=== PATIENT | female | born 1955 | race Caucasian/White ===

== ENCOUNTER 2021-03-30 08:35 | Inpatient (IN) | payer BC, MEDICARE ==
[~2021-03-30] VITALS: Ht 167.6 cm; Wt 63.9 kg
[2021-03-30 10:28] LABS: BASOPHILS % (AUTO) 0.4 % (0-1); EOSINOPHILS % (AUTO) 0.3 % (0-6); HEMATOCRIT 31.3 % (35.0-45.0); HEMOGLOBIN 10.5 g/dl (12.0-16.0); LYMPHOCYTES # (AUTO) 1.4 X10'3 (1.1-4.8); LYMPHOCYTES % (AUTO) 21.4 % (21-51); MEAN CORPUSCULAR HEMOGLOBIN 29.3 PG (27.0-31.0); MEAN CORPUSCULAR HGB CONC 33.6 g/dL (33.0-36.5); MEAN CORPUSCULAR VOLUME 87.1 FL (78-98); MEAN PLATELET VOLUME 6.5 FL (7.4-10.4); MONOCYTES # (AUTO) 0.4 X10'3 (0-0.9); NEUTROPHILS # (AUTO) 4.6 X10'3 (1.8-7.7); NEUTROPHILS % (AUTO) 71.9 % (42-75); PLATELET COUNT 418 X10'3 (140-440); RED BLOOD COUNT 3.59 X10'6 (4.20-5.60); RED CELL DISTRIBUTION WIDTH 15.5 % (11.5-14.5); WHITE BLOOD COUNT 6.4 X10'3 (4.5-11.0)
[2021-03-30 10:39] LABS: ALANINE AMINOTRANSFERASE 20 U/L (12-78); ALBUMIN 2.9 G/DL (3.4-5.0); ALBUMIN/GLOBULIN RATIO 0.8 (1.1-1.5); ALKALINE PHOSPHATASE 115 IU/L (46-116); ANION GAP 9 (8-16); ASPARTATE AMINO TRANSFERASE 18 U/L (10-37); BILIRUBIN,TOTAL 0.2 MG/DL (0.1-1.0); BLOOD UREA NITROGEN 30 MG/DL (7-18); BUN/CREATININE RATIO 38.5 (6.6-38.0); CALCIUM 8.4 MG/DL (8.5-10.1); CHLORIDE 105 MMOL/L (99-107); CREATININE 0.78 MG/DL (0.40-0.90); GLUCOSE 106 MG/DL (70-104); POTASSIUM 4.3 MMOL/L (3.5-5.1); SODIUM 141 MMOL/L (135-145); TOTAL PROTEIN 6.4 G/DL (6.4-8.2); eGFR 75 ML/MIN
[2021-03-30] MEDS ORDERED: pantoprazole IV 80 MG in normal saline 100ml IV soln 100 ML IV ONE (10:55)
[2021-03-30] MEDS ORDERED: LIDOcaine Viscous 15ml cup ONE (11:29)
[2021-03-30] MEDS ORDERED: MIDAZolam 1 MG/ML 5ML VIAL ONE (11:29)
[2021-03-30] MEDS ORDERED: fentaNYL/PF 50MCG/1 ML 2ML syringe ONE ×2 (11:29)
[2021-03-30 11:31] VITALS: BP 103/65
[2021-03-30 11:52] VITALS: BP 134/89
[2021-03-30 12:04] VITALS: BP 112/72
[2021-03-30 12:14] VITALS: BP 128/83
[2021-03-30 12:24] VITALS: BP 132/75
--- NOTE | 2021-03-30 12:50 | NUR ---
back from lab
[2021-03-30] MEDS ORDERED: LEVO150T8 PO (13:09)
[2021-03-30] MEDS ORDERED: ESCI20TA39 PO (13:09)
[2021-03-30] MEDS ORDERED: AMIT100T61 PO (13:09)
[2021-03-30] MEDS ORDERED: ASPI-845 PO (13:09)
[2021-03-30] MEDS ORDERED: HYDR-3972 PO (13:09)
[2021-03-30] MEDS ORDERED: CELE-85 PO (13:09)
[2021-03-30] MEDS ORDERED: diphenhydrAMINE 25mg capsule PO PRN (14:15)
[2021-03-30] MEDS ORDERED: morphine 2 MG/ML inj. syringe IV PRN ×2 (14:15)
[2021-03-30] MEDS ORDERED: magnesium hydroxide 30ml (MOM) UD suspension PO PRN (14:15)
[2021-03-30] MEDS ORDERED: potassium CL 10mEq/100ml bag 100 ML IV PRN (14:15)
[2021-03-30] MEDS ORDERED: acetaminophen 650mg rectal suppository RC PRN (14:15)
[2021-03-30] MEDS ORDERED: HYDROcodone/acetaminophen 5mg/325mg tablet PO PRN (14:15)
[2021-03-30] MEDS ORDERED: bisacodyl 10mg suppository rectal RC PRN (14:15)
[2021-03-30] MEDS ORDERED: HYDROcodone/acetaminophen 10/325mg tab PO PRN (14:15)
[2021-03-30] MEDS ORDERED: acetaminophen 325mg tablet PO PRN ×2 (14:15)
[2021-03-30] MEDS ORDERED: ondansetron/PF 4mg/2ml inj IV PRN (14:15)
[2021-03-30] MEDS ORDERED: magnesium Cl slow-release 64mg tablet PO PRN (14:15)
[2021-03-30] MEDS ORDERED: potassium Cl 20 mEq SR tablet PO PRN (14:15)
[2021-03-30] MEDS ORDERED: mag hydrox/Alum hydrox/simeth 30ml oral suspension PO PRN (14:15)
[2021-03-30] MEDS ORDERED: magnesium 2GM in 50ml NS 50 ML IV PRN (14:15)
[2021-03-30] MEDS ORDERED: magnesium 4gm in 100ml NS 100 ML IV PRN (14:15)
[2021-03-30 14:32] LABS: HEMATOCRIT 30.6 % (35.0-45.0); HEMOGLOBIN 10.3 g/dl (12.0-16.0); MEAN CORPUSCULAR HEMOGLOBIN 29.3 PG (27.0-31.0); MEAN CORPUSCULAR HGB CONC 33.6 g/dL (33.0-36.5); MEAN CORPUSCULAR VOLUME 87.5 FL (78-98); MEAN PLATELET VOLUME 6.4 FL (7.4-10.4); PLATELET COUNT 377 X10'3 (140-440); RED CELL DISTRIBUTION WIDTH 15.8 % (11.5-14.5); WHITE BLOOD COUNT 6.1 X10'3 (4.5-11.0)
[2021-03-30 14:48] LABS: MAGNESIUM 2.1 MG/DL (1.5-2.4); POTASSIUM 3.9 MMOL/L (3.5-5.1)
[2021-03-30 15:08] LABS: HEMOGLOBIN A1C 5.1 % (4.5-6.2)
[2021-03-30] MEDS: pantoprazole 40MG/NS 100ML BAG 100 ML IV SCH ×3 (15:43→23:13)
[2021-03-30] MEDS: normal saline 1000ml 1,000 ML IV SCH ×2 (15:49→22:20)
[2021-03-30 18:29] VITALS: BP 101/77
[2021-03-30] MEDS ORDERED: K and/or MAG REPLACEMENT MC SCH (20:00)
[2021-03-30 20:29] LABS: HEMATOCRIT 27.9 % (35.0-45.0); HEMOGLOBIN 9.3 g/dl (12.0-16.0); MEAN CORPUSCULAR HEMOGLOBIN 29.2 PG (27.0-31.0); MEAN CORPUSCULAR HGB CONC 33.2 g/dL (33.0-36.5); MEAN PLATELET VOLUME 6.3 FL (7.4-10.4); PLATELET COUNT 348 X10'3 (140-440); RED BLOOD COUNT 3.16 X10'6 (4.20-5.60); RED CELL DISTRIBUTION WIDTH 15.9 % (11.5-14.5); WHITE BLOOD COUNT 5.1 X10'3 (4.5-11.0)
[2021-03-30] MEDS ORDERED: amitriptyline 50mg tablet PO SCH (21:00)
[2021-03-30] MEDS ORDERED: ESCITALOPRAM OXALATE 5 MG TABLET PO SCH (21:00)
[2021-03-30] MEDS: docusate sod 100mg capsule PO SCH (22:19)
[2021-03-30] MEDS: HYDROcodone/acetaminophen 10/325mg tab PO PRN (22:42)
[2021-03-30] MEDS ORDERED: Melatonin 3mg tablet PO SCH (23:25)
[2021-03-31] MEDS: pantoprazole 40MG/NS 100ML BAG 100 ML IV SCH ×3 (01:59→11:13)
[2021-03-31 02:41] LABS: BASOPHILS % (AUTO) 0.8 % (0-1); EOSINOPHILS # (AUTO) 0.1 X10'3 (0-0.9); EOSINOPHILS % (AUTO) 2.1 % (0-6); HEMATOCRIT 24.3 % (35.0-45.0); HEMOGLOBIN 8.3 g/dl (12.0-16.0); LYMPHOCYTES % (AUTO) 46.1 % (21-51); MEAN CORPUSCULAR HEMOGLOBIN 29.7 PG (27.0-31.0); MEAN CORPUSCULAR HGB CONC 34.3 g/dL (33.0-36.5); MEAN CORPUSCULAR VOLUME 86.6 FL (78-98); MEAN PLATELET VOLUME 6.8 FL (7.4-10.4); MONOCYTES # (AUTO) 0.3 X10'3 (0-0.9); MONOCYTES % (AUTO) 7.1 % (2-12); NEUTROPHILS # (AUTO) 1.9 X10'3 (1.8-7.7); NEUTROPHILS % (AUTO) 43.9 % (42-75); PLATELET COUNT 317 X10'3 (140-440); RED CELL DISTRIBUTION WIDTH 15.4 % (11.5-14.5); WHITE BLOOD COUNT 4.3 X10'3 (4.5-11.0)
[2021-03-31 02:49] LABS: ALANINE AMINOTRANSFERASE 20 U/L (12-78); ALBUMIN 2.5 G/DL (3.4-5.0); ALBUMIN/GLOBULIN RATIO 0.9 (1.1-1.5); ALKALINE PHOSPHATASE 96 IU/L (46-116); ANION GAP 9 (8-16); ASPARTATE AMINO TRANSFERASE 21 U/L (10-37); BILIRUBIN,TOTAL 0.2 MG/DL (0.1-1.0); BLOOD UREA NITROGEN 15 MG/DL (7-18); BUN/CREATININE RATIO 23.8 (6.6-38.0); CALCIUM 7.9 MG/DL (8.5-10.1); CHLORIDE 109 MMOL/L (99-107); CHOLESTEROL 137 MG/DL (0-200); CREATININE 0.63 MG/DL (0.40-0.90); GLUCOSE 88 MG/DL (70-104); HDL CHOLESTEROL 34 MG/DL (35-60); LDL CHOLESTEROL 80 MG/DL (50-100); PHOSPHORUS 3.8 MG/DL (2.3-4.5); POTASSIUM 3.4 MMOL/L (3.5-5.1); SODIUM 142 MMOL/L (135-145); TOTAL CARBON DIOXIDE 24.4 MMOL/L (24-32); TOTAL PROTEIN 5.2 G/DL (6.4-8.2); TRIGLYCERIDES 126 MG/DL (20-135); eGFR > 90 ML/MIN
[2021-03-31] MEDS: potassium Cl 20 mEq SR tablet PO PRN ×3 (05:51→13:31)
[2021-03-31] MEDS ORDERED: levoTHYROXINE 75mcg tablet PO SCH (07:00)
[2021-03-31] MEDS: docusate sod 100mg capsule PO SCH (08:56)
[2021-03-31] MEDS: HYDROcodone/acetaminophen 10/325mg tab PO PRN (08:59)
[2021-03-31 09:31] LABS: HEMATOCRIT 23.6 % (35.0-45.0); HEMOGLOBIN 8.4 g/dl (12.0-16.0); MEAN CORPUSCULAR HEMOGLOBIN 30.8 PG (27.0-31.0); MEAN CORPUSCULAR HGB CONC 35.4 g/dL (33.0-36.5); MEAN CORPUSCULAR VOLUME 87.1 FL (78-98); MEAN PLATELET VOLUME 7.1 FL (7.4-10.4); PLATELET COUNT 305 X10'3 (140-440); RED BLOOD COUNT 2.71 X10'6 (4.20-5.60); RED CELL DISTRIBUTION WIDTH 15.9 % (11.5-14.5); WHITE BLOOD COUNT 3.2 X10'3 (4.5-11.0)
[2021-03-31] MEDS: normal saline 1000ml 1,000 ML IV SCH (11:29)
[2021-03-31] MEDS ORDERED: SUCR1TAB34 PO (12:59)
[2021-03-31] MEDS ORDERED: PANT40TA54 PO (12:59)
[2021-04-05 12:29] LABS: OCCULT BLOOD STOOL POSITIVE (Neg)
== END 2021-03-31 15:12 | disposition home or self-care (01) | DRG 379 ==
LOC: ER 08:35 → ED HOLD 14:17 → PCU 3S 21:43
PROVIDERS: ADMIT Family Medicine; ATTEND Family Medicine
PROC: 0DB68ZX Excision of Stomach, Via Natural or Artificial Opening Endoscopic, Diagnostic (ICD-10-PCS; principal; 2021-03-30)
DX: K28.4 Chronic or unspecified gastrojejunal ulcer with hemorrhage (principal); D64.9 Anemia, unspecified; E03.9 Hypothyroidism, unspecified; F17.210 Nicotine dependence, cigarettes, uncomplicated; F32.A Depression, unspecified; G89.4 Chronic pain syndrome; K44.9 Diaphragmatic hernia without obstruction or gangrene; M19.90 Unspecified osteoarthritis, unspecified site; M54.9 Dorsalgia, unspecified; R55 Syncope and collapse; Z96.652 Presence of left artificial knee joint; K21.9 Gastro-esophageal reflux disease without esophagitis; Z79.82 Long term (current) use of aspirin; Z79.890 Hormone replacement therapy; Z82.62 Family history of osteoporosis; Z90.49 Acquired absence of other specified parts of digestive tract; Z90.710 Acquired absence of both cervix and uterus; Z98.84 Bariatric surgery status; Z71.6 Tobacco abuse counseling
CPT/HCPCS: 36415; 43239; 80053; 80061; 82272; 83036; 83735; 84100; 84132; 85025; 85027; 85610; 86885; 86900; 86901; 87081; 93005; 99152; 99285; A4620; C9113; G0378; J2250; J2270; J3010; J7030; J7040

== ENCOUNTER 2021-04-04 20:41 | Inpatient (IN) | payer BC, MEDICARE ==
[~2021-04-04] VITALS: Ht 167.6 cm; Wt 75.0 kg
[~2021-04-04 20:41] MED LIST: AMIT100T61 PO; ESCI20TA39 PO; HYDR-3972 PO; LEVO150T8 PO; MAGNESIUM IV ONE; PANT40TA54 PO; SUCR1TAB34 PO; amiodarone 50MG/ML inj IV ONE; atropine 0.1mg/ml 10ml syringe ONE; epiNEPHrine 0.1mg/ml 10ml syringe ONE; sodium bicarbonate (8.4%) 1 mEq/ml syringe ONE
[2021-04-04 21:16] LABS: BASOPHILS % (AUTO) 0.6 % (0-1); EOSINOPHILS # (AUTO) 0.1 X10'3 (0-0.9); EOSINOPHILS % (AUTO) 2.8 % (0-6); HEMATOCRIT 23.4 % (35.0-45.0); HEMOGLOBIN 7.8 g/dl (12.0-16.0); LYMPHOCYTES # (AUTO) 1.5 X10'3 (1.1-4.8); LYMPHOCYTES % (AUTO) 34.4 % (21-51); MEAN CORPUSCULAR HEMOGLOBIN 29.4 PG (27.0-31.0); MEAN CORPUSCULAR HGB CONC 33.3 g/dL (33.0-36.5); MEAN CORPUSCULAR VOLUME 88.2 FL (78-98); MEAN PLATELET VOLUME 6.9 FL (7.4-10.4); MONOCYTES # (AUTO) 0.4 X10'3 (0-0.9); MONOCYTES % (AUTO) 8.2 % (2-12); NEUTROPHILS # (AUTO) 2.4 X10'3 (1.8-7.7); PLATELET COUNT 328 X10'3 (140-440); RED BLOOD COUNT 2.65 X10'6 (4.20-5.60); RED CELL DISTRIBUTION WIDTH 15.6 % (11.5-14.5); WHITE BLOOD COUNT 4.4 X10'3 (4.5-11.0)
[2021-04-04 21:29] LABS: ALANINE AMINOTRANSFERASE 20 U/L (12-78); ALBUMIN 2.5 G/DL (3.4-5.0); ALBUMIN/GLOBULIN RATIO 0.9 (1.1-1.5); ALKALINE PHOSPHATASE 109 IU/L (46-116); ANION GAP 9 (8-16); ASPARTATE AMINO TRANSFERASE 16 U/L (10-37); BILIRUBIN,TOTAL 0.2 MG/DL (0.1-1.0); BLOOD UREA NITROGEN 12 MG/DL (7-18); BUN/CREATININE RATIO 12.5 (6.6-38.0); CALCIUM 7.7 MG/DL (8.5-10.1); CHLORIDE 107 MMOL/L (99-107); CREATININE 0.96 MG/DL (0.40-0.90); GLUCOSE 127 MG/DL (70-104); POTASSIUM 3.4 MMOL/L (3.5-5.1); SODIUM 142 MMOL/L (135-145); TOTAL CARBON DIOXIDE 25.9 MMOL/L (24-32); TOTAL PROTEIN 5.4 G/DL (6.4-8.2); eGFR 59 ML/MIN
[2021-04-04 21:33] LABS: PARTIAL THROMBOPLASTIN TIME 26 SECONDS (22-32)
[2021-04-04] MEDS ORDERED: iohexol 350MG/ML 100ml bottle IV ONE ×3 (21:36→23:18)
--- NOTE | 2021-04-04 21:55 | NUR ---
Pt being taken to ct scanner and became aloc with agonal respirations. pt back to bed 3 cpr in progress with bvm respirations 2153 pads placed and torsodes 2154 2 mag given 2156 rythm check - v-fib 2156 epi in 2157 bicarb in 2158 150 amio 2158 pulse returned hr 60 bp 150/79 spo2 84 pt put on non-rebreather spo2 96 post 2201 sinus tach 102 pt speaking a&ox4 bp 168/144 20g iv to left FA ekg done 2204 hr 64 sinus bp 73/40 spo2 100 still on nrb
[2021-04-04] MEDS ORDERED: amiodarone/D5 360MG/200ML BAG 200 ML IV ONE (22:01)
[2021-04-04 22:10] LABS: ABG BASE EXCESS -1.9 mmol/L (-2.0-2.0); ABG HCO3 21.9 mmol/L (22.0-26.0); ABG OXYGEN SATURATION 99.1 % (94-97); ABG PO2 (T) 339.3 mmHg (75.0-100.0); FLOW 15 L/min; FMetHb 0.3 % (0.0-1.5); FO2Hb 94.8 % (94-97); TOTAL HEMOGLOBIN 8.5 G/dl (12.0-16.0)
--- NOTE | 2021-04-04 22:15 | NUR ---
blood transfusion began amiodarone drip started 2215 pt states she feels like it will happen again hr 51 -2rd degree block bp 63/31 spo2 100 rr 10
--- NOTE | 2021-04-04 22:22 | NUR ---
2222 half dose epi given hr 51 3rd degree heart block spo2 100 nrb bp 118/52 1 liter NS infused. pt now getting 2nd liter 2225 gastrocult positive 1 unitblood transfusion complete 222 medical laboratory technicians at bedside hr 55 first degree bradycardia bp 77/53 spo2 100 2230 0.5 mg epi given 223 painter foreman at bedside hr 63 sinus bp 126/70 spo2 100
[2021-04-04 22:25] LABS: BASOPHILS % (AUTO) 0.4 % (0-1); EOSINOPHILS # (AUTO) 0.1 X10'3 (0-0.9); EOSINOPHILS % (AUTO) 1.2 % (0-6); HEMATOCRIT 25.1 % (35.0-45.0); HEMOGLOBIN 8.4 g/dl (12.0-16.0); LYMPHOCYTES # (AUTO) 3.4 X10'3 (1.1-4.8); MEAN CORPUSCULAR HEMOGLOBIN 29.4 PG (27.0-31.0); MEAN CORPUSCULAR HGB CONC 33.3 g/dL (33.0-36.5); MEAN CORPUSCULAR VOLUME 88.5 FL (78-98); MEAN PLATELET VOLUME 6.8 FL (7.4-10.4); MONOCYTES # (AUTO) 0.7 X10'3 (0-0.9); MONOCYTES % (AUTO) 8.7 % (2-12); NEUTROPHILS # (AUTO) 4.1 X10'3 (1.8-7.7); NEUTROPHILS % (AUTO) 48.7 % (42-75); PLATELET COUNT 338 X10'3 (140-440); RED BLOOD COUNT 2.84 X10'6 (4.20-5.60); RED CELL DISTRIBUTION WIDTH 16.1 % (11.5-14.5); WHITE BLOOD COUNT 8.4 X10'3 (4.5-11.0)
[2021-04-04] MEDS ORDERED: LIDOcaine 1% (10mg/ml)w/preservative injection 20ml MDV ONE (22:34)
[2021-04-04] MEDS ORDERED: heparin 1,000unit/ml 10ml vial 10 ML ONE (22:34)
[2021-04-04] MEDS ORDERED: midazolam 1 mg/ML 2ml injection ONE (22:34)
[2021-04-04] MEDS ORDERED: iohexol 350 MG/ML 50ML vial IV ONE (22:34)
[2021-04-04] MEDS ORDERED: fentaNYL/PF 50MCG/1 ML 2ML syringe ONE (22:34)
[2021-04-04 22:37] LABS: ALANINE AMINOTRANSFERASE 68 U/L (12-78); ALBUMIN 2.5 G/DL (3.4-5.0); ALBUMIN/GLOBULIN RATIO 0.8 (1.1-1.5); ALKALINE PHOSPHATASE 119 IU/L (46-116); ANION GAP 8 (8-16); ASPARTATE AMINO TRANSFERASE 76 U/L (10-37); BILIRUBIN,TOTAL 0.2 MG/DL (0.1-1.0); BLOOD UREA NITROGEN 14 MG/DL (7-18); BUN/CREATININE RATIO 14.6 (6.6-38.0); CALCIUM 7.9 MG/DL (8.5-10.1); CHLORIDE 105 MMOL/L (99-107); CREATININE 0.96 MG/DL (0.40-0.90); GLUCOSE 126 MG/DL (70-104); MAGNESIUM 2.7 MG/DL (1.5-2.4); SODIUM 141 MMOL/L (135-145); TOTAL CARBON DIOXIDE 27.7 MMOL/L (24-32); TOTAL PROTEIN 5.5 G/DL (6.4-8.2); eGFR 59 ML/MIN
[2021-04-04] MEDS ORDERED: mag hydrox/Alum hydrox/simeth 30ml oral suspension PO ONE (22:40)
--- NOTE | 2021-04-04 22:43 | NUR ---
quality assurance lab technician at bedside to simran pt. 0.5mg atropine given by them
[2021-04-04] MEDS ORDERED: epiNEPHrine 1 mg/ml inj ONE (22:51)
[2021-04-04] MEDS ORDERED: atropine 0.1mg/ml 10ml syringe ONE (22:51)
[2021-04-04] MEDS ORDERED: sucralfate 1 gm tablet PO SCH (22:55)
[2021-04-04] MEDS ORDERED: sucralfate 1 gm tablet PO ONE (22:55)
[2021-04-04] MEDS ORDERED: phenylephrine 10mg/ml inj. ONE (22:57)
[2021-04-04] MEDS ORDERED: DOPamine 400mg/D5W 250ml 250 ML IV ONE (23:07)
[2021-04-04] MEDS ORDERED: ticagrelor 90mg tablet ONE (23:24)
[2021-04-05] VITALS (35 sets, daily range): BP systolic 70–149; BP diastolic 26–86
[2021-04-05] MEDS ORDERED: acetaminophen 325mg tablet PO PRN ×2 (00:05)
--- NOTE | 2021-04-05 00:15 | NUR ---
Patient transferred from chemical laboratory technician to room ICU 2045. I have received report from TANIA Singh and had the opportunity to ask questions and assume patient care.
[2021-04-05] MEDS ORDERED: NORepinephrine 8mg/ 250ml NS 250 ML IV ONE (00:19)
[2021-04-05] MEDS ORDERED: normal saline 500ml IV soln 500 ML IV ONE ×3 (00:35→10:55)
[2021-04-05] MEDS ORDERED: potassium chloride 10mEq ER tablet PO ONE (01:10)
[2021-04-05] MEDS ORDERED: HYDROcodone/acetaminophen 10/325mg tab PO PRN ×3 (01:25→11:20)
[2021-04-05] MEDS ORDERED: proCHLORperazine 10 MG/2 ml inj IV PRN (01:35)
[2021-04-05] MEDS ORDERED: ondansetron/PF 4mg/2ml inj IV PRN (01:35)
[2021-04-05] MEDS ORDERED: HYDROcodone/acetaminophen 5mg/325mg tablet PO PRN (01:35)
[2021-04-05] MEDS: potassium Cl 10 mEq/100mL bag IV SCH ×4 (01:48→05:54)
[2021-04-05] MEDS: HYDROcodone/acetaminophen 10/325mg tab PO PRN ×5 (01:52→23:44)
[2021-04-05] MEDS: amiodarone/D5 360MG/200ML BAG 200 ML IV SCH ×2 (01:58→03:40)
[2021-04-05] MEDS: normal saline 1000ml 1,000 ML IV SCH ×3 (02:00→21:59)
[2021-04-05] MEDS: DOBUTamine-DoBUTrex 500mg/D5W 250 ML IV SCH ×2 (02:01→22:00)
[2021-04-05] MEDS: NORepinephrine 8mg/ 250ml NS 250 ML IV SCH ×2 (02:02→18:27)
[2021-04-05] MEDS: magnesium hydroxide 30ml (MOM) UD suspension PO SCH ×4 (02:35→19:04)
[2021-04-05 03:17] LABS: BASOPHILS # (AUTO) 0.1 X10'3 (0-0.2); BASOPHILS % (AUTO) 0.8 % (0-1); EOSINOPHILS % (AUTO) 0.1 % (0-6); HEMATOCRIT 23.7 % (35.0-45.0); HEMOGLOBIN 8.3 g/dl (12.0-16.0); LYMPHOCYTES # (AUTO) 0.5 X10'3 (1.1-4.8); LYMPHOCYTES % (AUTO) 5.2 % (21-51); MEAN CORPUSCULAR HEMOGLOBIN 30.4 PG (27.0-31.0); MEAN CORPUSCULAR HGB CONC 35.1 g/dL (33.0-36.5); MEAN CORPUSCULAR VOLUME 86.7 FL (78-98); MONOCYTES # (AUTO) 0.5 X10'3 (0-0.9); NEUTROPHILS # (AUTO) 8.3 X10'3 (1.8-7.7); NEUTROPHILS % (AUTO) 88.9 % (42-75); PLATELET COUNT 288 X10'3 (140-440); RED BLOOD COUNT 2.74 X10'6 (4.20-5.60); RED CELL DISTRIBUTION WIDTH 15.4 % (11.5-14.5); WHITE BLOOD COUNT 9.3 X10'3 (4.5-11.0)
[2021-04-05 03:32] LABS: ALANINE AMINOTRANSFERASE 145 U/L (12-78); ALBUMIN 2.3 G/DL (3.4-5.0); ALBUMIN/GLOBULIN RATIO 0.8 (1.1-1.5); ALKALINE PHOSPHATASE 147 IU/L (46-116); ANION GAP 8 (8-16); ASPARTATE AMINO TRANSFERASE 246 U/L (10-37); BILIRUBIN,TOTAL 0.2 MG/DL (0.1-1.0); BLOOD UREA NITROGEN 16 MG/DL (7-18); BUN/CREATININE RATIO 17.8 (6.6-38.0); CALCIUM 7.2 MG/DL (8.5-10.1); CHLORIDE 109 MMOL/L (99-107); GLUCOSE 171 MG/DL (70-104); MAGNESIUM 2.1 MG/DL (1.5-2.4); PHOSPHORUS 2.3 MG/DL (2.3-4.5); POTASSIUM 3.7 MMOL/L (3.5-5.1); SODIUM 142 MMOL/L (135-145); TOTAL CARBON DIOXIDE 24.8 MMOL/L (24-32); TOTAL PROTEIN 5.1 G/DL (6.4-8.2); eGFR 63 ML/MIN
[2021-04-05] MEDS ORDERED: morphine 2 MG/ML inj. syringe IV ONE (04:40)
[2021-04-05 05:26] LABS: OCCULT BLOOD STOOL POSITIVE (Neg)
--- NOTE | 2021-04-05 06:00 | NUR ---
Summary note: patient arrived from laboratory operations coordinator with dopamine running at 5 mcg/hr, BP was 60s/20s. gtt was titrated up to max, with little result in blood pressure. Tele MD Lackey was notified and a 500 cc bolus and norepi gtt order was received. Pt got tachycardic and had a run of v tach. Dopamine was titrated down to 7mcg per hour and norepi was titrated up to .3mcg/kg/hr. Patient's BP stabilized. Spoke with MD an additional time and he decided to switch from dopamine to dobutamine, starting it at 5mcg/hr and to give an additional bolus. Family was at bedside for about hour during this time. Patient responded well to fluid bolus. I was able to titrate norepi off. Patient's K was 3 and was replaced throughout the night with 40 meq PO and 40 meq IV. MD Lackey called to check in and was updated on patient condition, he ordered the dobutamine to be titrated down to 2.5mcg/hr. Patient tolerated this well. Patient remained alert and oriented throughout the night. Pt currently in sinus rhythm with heart rate in the 80s. On 4L nasal cannula, sating 98%. she is tolerating drinking fluid. Has a hicks in place draining to gravity with yellow urine, made 50-60 cc/hr through the night. she is able to move all extremities and skin is intact. Daughter Lanny called twice through the night to receive updates. She is concerned about her mom's recent history of a GI bleed. She was reassured that labs are being monitored closely as we are doing serial h/h q4h. Patient has venous sheath to the right groin which has the dobutamine running. arterial puncture site is clean dry and intact and was assessed with day shift RN [place]. perclose was used to close the site. Patient aware that she is to remain flat while she has the venous sheath in. Pt remains painful despite norco 10 and 2mg of morphine, passed on to day shift that an increase in dose may be warranted as she takes norco 10s at home and states that she sometimes takes another half of a norco 10 if her pain is still out of control.
--- NOTE | 2021-04-05 06:25 | NUR ---
Problems reprioritized. Patient report given, questions answered & plan of care reviewed with TANIA Blackwood.
[2021-04-05] MEDS ORDERED: sucralfate 1 gm tablet PO SCH (07:00)
[2021-04-05 07:32] LABS: HEMATOCRIT 25.3 % (35.0-45.0); HEMOGLOBIN 8.5 g/dl (12.0-16.0); MEAN CORPUSCULAR HEMOGLOBIN 29.1 PG (27.0-31.0); MEAN CORPUSCULAR HGB CONC 33.4 g/dL (33.0-36.5); MEAN CORPUSCULAR VOLUME 87.1 FL (78-98); PLATELET COUNT 293 X10'3 (140-440); RED BLOOD COUNT 2.91 X10'6 (4.20-5.60); RED CELL DISTRIBUTION WIDTH 15.6 % (11.5-14.5); WHITE BLOOD COUNT 8.2 X10'3 (4.5-11.0)
[2021-04-05] MEDS: pantoprazole 40mg Tablet.DR PO SCH ×2 (07:50→19:03)
[2021-04-05] MEDS: sucralfate 1 gm tablet PO SCH ×2 (07:51→17:26)
[2021-04-05] MEDS: levoTHYROXINE 75mcg tablet PO SCH (07:52)
[2021-04-05] MEDS: docusate sod 100mg capsule PO SCH ×2 (08:51→19:03)
[2021-04-05] MEDS: ESCITALOPRAM OXALATE 5 MG TABLET PO SCH (08:51)
[2021-04-05] MEDS: atorvastatin 20mg tablet PO SCH (08:51)
[2021-04-05] MEDS: ticagrelor 90mg tablet PO SCH ×2 (08:51→19:03)
[2021-04-05] MEDS: enoxaparin 30mg/0.3ml syringe SUBCUT SCH ×2 (08:52→19:04)
[2021-04-05] MEDS: amiodarone 200mg tablet PO SCH ×2 (08:53→19:03)
[2021-04-05 15:19] LABS: HEMATOCRIT 25.1 % (35.0-45.0); HEMOGLOBIN 8.5 g/dl (12.0-16.0); MEAN CORPUSCULAR HEMOGLOBIN 29.4 PG (27.0-31.0); MEAN CORPUSCULAR HGB CONC 33.9 g/dL (33.0-36.5); MEAN CORPUSCULAR VOLUME 86.8 FL (78-98); PLATELET COUNT 301 X10'3 (140-440); RED BLOOD COUNT 2.89 X10'6 (4.20-5.60); RED CELL DISTRIBUTION WIDTH 15.6 % (11.5-14.5); WHITE BLOOD COUNT 8.8 X10'3 (4.5-11.0)
[2021-04-05] MEDS ORDERED: atropine 0.1mg/ml 10ml syringe ONE (15:24)
--- NOTE | 2021-04-05 16:18 | NUR ---
Right femoral venous introducer sheath removed as ordered @ 1530. Manual pressure applied x 5 mins, hemostasis achieved @ 1535, no immediate complications noted, no bleeding or hematoma observed, sterile occlusive dressing applied to site. CSM to right lower extremity intact. Pt kept supine at this time and will continue to monitor. Addendum: 04/05/21 at 1621 by Julisa Cleary RN Amended: Links added.
--- NOTE | 2021-04-05 18:30 | NUR ---
Patient in room ICU 2045. I have received report from TANIA Blackwood and had the opportunity to ask questions and assume patient care.
--- NOTE | 2021-04-05 18:46 | NUR ---
Problems reprioritized. Patient report given, questions answered & plan of care reviewed with TANIA Moore.
[2021-04-05] MEDS ORDERED: enoxaparin 40mg/0.4ml syringe SUBCUT SCH (20:00)
[2021-04-05] MEDS ORDERED: amitriptyline 25mg tablet PO SCH (21:00)
[2021-04-05 23:39] LABS: HEMOGLOBIN 8.7 g/dl (12.0-16.0); MEAN CORPUSCULAR HEMOGLOBIN 29.3 PG (27.0-31.0); MEAN CORPUSCULAR HGB CONC 33.4 g/dL (33.0-36.5); MEAN CORPUSCULAR VOLUME 87.8 FL (78-98); MEAN PLATELET VOLUME 7.2 FL (7.4-10.4); PLATELET COUNT 322 X10'3 (140-440); RED BLOOD COUNT 2.95 X10'6 (4.20-5.60); RED CELL DISTRIBUTION WIDTH 15.9 % (11.5-14.5); WHITE BLOOD COUNT 7.4 X10'3 (4.5-11.0)
[2021-04-06] VITALS (19 sets, daily range): BP systolic 101–126; BP diastolic 48–72
[2021-04-06] MEDS: OXAZEpam 15mg capsule PO PRN ×2 (01:30→20:37)
[2021-04-06] MEDS: HYDROcodone/acetaminophen 10/325mg tab PO PRN ×5 (03:56→21:04)
[2021-04-06 06:17] LABS: BASOPHILS % (AUTO) 0.3 % (0-1); EOSINOPHILS # (AUTO) 0.1 X10'3 (0-0.9); EOSINOPHILS % (AUTO) 1.8 % (0-6); HEMATOCRIT 27.9 % (35.0-45.0); HEMOGLOBIN 9.5 g/dl (12.0-16.0); LYMPHOCYTES # (AUTO) 1.3 X10'3 (1.1-4.8); LYMPHOCYTES % (AUTO) 18.7 % (21-51); MEAN CORPUSCULAR HEMOGLOBIN 29.8 PG (27.0-31.0); MEAN CORPUSCULAR HGB CONC 34.1 g/dL (33.0-36.5); MEAN CORPUSCULAR VOLUME 87.4 FL (78-98); MEAN PLATELET VOLUME 7.2 FL (7.4-10.4); MONOCYTES # (AUTO) 0.6 X10'3 (0-0.9); MONOCYTES % (AUTO) 8.2 % (2-12); PLATELET COUNT 341 X10'3 (140-440); RED BLOOD COUNT 3.19 X10'6 (4.20-5.60); RED CELL DISTRIBUTION WIDTH 16.2 % (11.5-14.5); WHITE BLOOD COUNT 7.1 X10'3 (4.5-11.0)
--- NOTE | 2021-04-06 06:33 | NUR ---
Problems reprioritized. Patient report given, questions answered & plan of care reviewed with TANIA Pierre.
[2021-04-06 06:50] LABS: ALANINE AMINOTRANSFERASE 107 U/L (12-78); ALBUMIN 2.3 G/DL (3.4-5.0); ALBUMIN/GLOBULIN RATIO 0.7 (1.1-1.5); ALKALINE PHOSPHATASE 151 IU/L (46-116); ANION GAP 7 (8-16); ASPARTATE AMINO TRANSFERASE 134 U/L (10-37); BILIRUBIN,TOTAL 0.3 MG/DL (0.1-1.0); BLOOD UREA NITROGEN 15 MG/DL (7-18); BUN/CREATININE RATIO 20.3 (6.6-38.0); CALCIUM 7.9 MG/DL (8.5-10.1); CHLORIDE 107 MMOL/L (99-107); CREATININE 0.74 MG/DL (0.40-0.90); GLUCOSE 87 MG/DL (70-104); MAGNESIUM 2.4 MG/DL (1.5-2.4); PHOSPHORUS 2.7 MG/DL (2.3-4.5); POTASSIUM 4.5 MMOL/L (3.5-5.1); SODIUM 139 MMOL/L (135-145); TOTAL CARBON DIOXIDE 25.2 MMOL/L (24-32); TOTAL PROTEIN 5.4 G/DL (6.4-8.2); eGFR 79 ML/MIN
[2021-04-06] MEDS: normal saline 1000ml 1,000 ML IV SCH (06:59)
[2021-04-06] MEDS: amiodarone 200mg tablet PO SCH ×2 (08:28→20:37)
[2021-04-06] MEDS: ticagrelor 90mg tablet PO SCH ×2 (08:28→20:36)
[2021-04-06] MEDS: pantoprazole 40mg Tablet.DR PO SCH ×2 (08:28→20:37)
[2021-04-06] MEDS: ESCITALOPRAM OXALATE 5 MG TABLET PO SCH (08:28)
[2021-04-06] MEDS: sucralfate 1 gm tablet PO SCH ×2 (08:29→16:39)
[2021-04-06] MEDS: docusate sod 100mg capsule PO SCH ×2 (08:29→20:38)
[2021-04-06] MEDS: atorvastatin 20mg tablet PO SCH (08:29)
[2021-04-06] MEDS: enoxaparin 30mg/0.3ml syringe SUBCUT SCH ×2 (08:29→20:35)
[2021-04-06] MEDS: levoTHYROXINE 75mcg tablet PO SCH (08:30)
[2021-04-06] MEDS ORDERED: ondansetron 4mg rapidly disintigrating tab PO PRN (15:45)
--- NOTE | 2021-04-06 19:07 | NUR ---
Problems reprioritized. Patient report given, questions answered & plan of care reviewed with Becky MARIN
[2021-04-06] MEDS ORDERED: amitriptyline 50mg tablet PO SCH (21:00)
[2021-04-07] MEDS: HYDROcodone/acetaminophen 10/325mg tab PO PRN ×3 (02:14→10:42)
[2021-04-07 02:20] VITALS: BP 126/65
--- NOTE | 2021-04-07 06:59 | NUR ---
Patient in room PCU 3018. I have received report from Niko MRAIN and had the opportunity to ask questions and assume patient care. Pt semi fowlers in bed, breathing even and non labored, safety measures in place. no s/sx acute distress.
[2021-04-07 08:00] VITALS: BP 123/65
[2021-04-07] MEDS: atorvastatin 20mg tablet PO SCH (08:09)
[2021-04-07] MEDS: ESCITALOPRAM OXALATE 5 MG TABLET PO SCH (08:09)
[2021-04-07] MEDS: pantoprazole 40mg Tablet.DR PO SCH (08:09)
[2021-04-07] MEDS: ticagrelor 90mg tablet PO SCH (08:10)
[2021-04-07] MEDS: amiodarone 200mg tablet PO SCH (08:10)
[2021-04-07] MEDS: levoTHYROXINE 75mcg tablet PO SCH (08:11)
[2021-04-07] MEDS: docusate sod 100mg capsule PO SCH (08:11)
[2021-04-07] MEDS: sucralfate 1 gm tablet PO SCH (08:11)
[2021-04-07] MEDS: enoxaparin 30mg/0.3ml syringe SUBCUT SCH (08:12)
[2021-04-07] MEDS ORDERED: AMIT-189 PO (09:06)
[2021-04-07] MEDS ORDERED: AMIO200T27 PO (09:17)
[2021-04-07] MEDS ORDERED: ATOR40TA71 PO (09:17)
[2021-04-07] MEDS ORDERED: PANT40TA54 PO (09:17)
[2021-04-07] MEDS ORDERED: SUCR1TAB34 PO (09:17)
[2021-04-07] MEDS ORDERED: TICA90TA2 PO (09:17)
[2021-04-07 09:44] LABS: BASOPHILS % (AUTO) 0.5 % (0-1); EOSINOPHILS # (AUTO) 0.1 X10'3 (0-0.9); EOSINOPHILS % (AUTO) 2.5 % (0-6); HEMATOCRIT 29.9 % (35.0-45.0); HEMOGLOBIN 9.7 g/dl (12.0-16.0); LYMPHOCYTES # (AUTO) 0.9 X10'3 (1.1-4.8); MEAN CORPUSCULAR HEMOGLOBIN 28.7 PG (27.0-31.0); MEAN CORPUSCULAR HGB CONC 32.5 g/dL (33.0-36.5); MEAN CORPUSCULAR VOLUME 88.4 FL (78-98); MEAN PLATELET VOLUME 7.3 FL (7.4-10.4); MONOCYTES # (AUTO) 0.3 X10'3 (0-0.9); MONOCYTES % (AUTO) 5.6 % (2-12); NEUTROPHILS # (AUTO) 4.4 X10'3 (1.8-7.7); NEUTROPHILS % (AUTO) 75.4 % (42-75); PLATELET COUNT 346 X10'3 (140-440); RED BLOOD COUNT 3.38 X10'6 (4.20-5.60); RED CELL DISTRIBUTION WIDTH 15.7 % (11.5-14.5); WHITE BLOOD COUNT 5.9 X10'3 (4.5-11.0)
[2021-04-07 09:58] LABS: ALANINE AMINOTRANSFERASE 76 U/L (12-78); ALBUMIN 2.3 G/DL (3.4-5.0); ALBUMIN/GLOBULIN RATIO 0.7 (1.1-1.5); ALKALINE PHOSPHATASE 164 IU/L (46-116); ASPARTATE AMINO TRANSFERASE 65 U/L (10-37); BILIRUBIN,TOTAL 0.4 MG/DL (0.1-1.0); BLOOD UREA NITROGEN 10 MG/DL (7-18); BUN/CREATININE RATIO 11.1 (6.6-38.0); GLUCOSE 153 MG/DL (70-104); TOTAL CARBON DIOXIDE 28.2 MMOL/L (24-32); TOTAL PROTEIN 5.5 G/DL (6.4-8.2); eGFR 63 ML/MIN
[2021-04-07 11:00] VITALS: BP 97/43
[2021-04-07 11:06] LABS: ANION GAP 5 (8-16); CHLORIDE 103 MMOL/L (99-107); POTASSIUM 3.8 MMOL/L (3.5-5.1); SODIUM 136 MMOL/L (135-145)
--- NOTE | 2021-04-07 13:45 | NUR ---
Patient stable, nom distress noted, discharged home, discharge instructions given patient states understanding. Instructed to schedule follow up appointments. IV's discontinued, cannulas intact, telemetry discontinued. Scripts given to patient all personal belongings sent home with patient,taken to lobby by w/c and transported by .
--- NOTE | 2021-04-07 13:46 | NUR ---
[place] documentation: I have reviewed and agree with all interventions, assessments performed and documented by Anna MARIN. [place] Medication Administration: For this medication-pass time frame, all medication were reviewed, dispensed, administered and documented per hospital policy by Anna MARIN.
== END 2021-04-07 16:15 | disposition home or self-care (01) | DRG 246 ==
LOC: ER 20:42 → UNDOADMIN 04-05 00:20 → ICU 2S 04-05 00:20 → PCU 3S 04-06 16:06
PROVIDERS: ADMIT Internal Medicine Cardiovascular Disease; ATTEND Internal Medicine Cardiovascular Disease
PROC: 027034Z Dilation of Coronary Artery, One Artery with Drug-eluting Intraluminal Device, Percutaneous Approach (ICD-10-PCS; principal; 2021-04-04)
PROC: 5A12012 Performance of Cardiac Output, Single, Manual (ICD-10-PCS; 2021-04-04)
PROC: 5A2204Z Restoration of Cardiac Rhythm, Single (ICD-10-PCS; 2021-04-04)
PROC: 4A023N7 Measurement of Cardiac Sampling and Pressure, Left Heart, Percutaneous Approach (ICD-10-PCS; 2021-04-04)
PROC: B211YZZ Fluoroscopy of Multiple Coronary Arteries using Other Contrast (ICD-10-PCS; 2021-04-04)
PROC: B41F1ZZ Fluoroscopy of Right Lower Extremity Arteries using Low Osmolar Contrast (ICD-10-PCS; 2021-04-04)
PROC: 30233N1 Transfusion of Nonautologous Red Blood Cells into Peripheral Vein, Percutaneous Approach (ICD-10-PCS; 2021-04-04)
DX: I21.19 ST elevation (STEMI) myocardial infarction involving other coronary artery of inferior wall (principal); I49.01 Ventricular fibrillation; R57.0 Cardiogenic shock; I46.9 Cardiac arrest, cause unspecified; I44.2 Atrioventricular block, complete; I25.10 Atherosclerotic heart disease of native coronary artery without angina pectoris; F32.A Depression, unspecified; E03.9 Hypothyroidism, unspecified; D64.9 Anemia, unspecified; Z72.0 Tobacco use; Z90.710 Acquired absence of both cervix and uterus
CPT/HCPCS: 36415; 36430; 36600; 71045; 80053; 82272; 82803; 82948; 83605; 83735; 83880; 84100; 84443; 84484; 85018; 85025; 85027; 85610; 85730; 86885; 86900; 86901; 86920; 87081; 93005; 93306; 96374; 99291; G0378; J0171; J0282; J0461; J1250; J1265; J1644; J1650; J2250; J2270; J2370; J3010; J3475; J3480; J3490; J7030; J7040; P9016; Q9967

== ENCOUNTER 2023-10-28 09:37 | Emergency (ER) | payer MEDICARE, OTHER ==
[~2023-10-28] VITALS: Ht 167.6 cm; Wt 149.0 kg
[~2023-10-28 09:37] MED LIST changes: +AMIO200T27 PO; -AMIT100T61 PO; +AMIT50TA15 PO; +ATOR40TA71 PO; -MAGNESIUM IV ONE; +TICA90TA2 PO; -amiodarone 50MG/ML inj IV ONE; -atropine 0.1mg/ml 10ml syringe ONE; -epiNEPHrine 0.1mg/ml 10ml syringe ONE; -sodium bicarbonate (8.4%) 1 mEq/ml syringe ONE
[2023-10-28 09:44] VITALS: TEMP 97
[2023-10-28 10:06] LABS: BASOPHILS % (AUTO) 0.6 % (0-1); EOSINOPHILS # (AUTO) 0.1 X10'3 (0-0.9); EOSINOPHILS % (AUTO) 0.8 % (0-6); HEMATOCRIT 40.1 % (35.0-45.0); HEMOGLOBIN 12.7 g/dl (12.0-16.0); LYMPHOCYTES # (AUTO) 1.3 X10'3 (1.1-4.8); LYMPHOCYTES % (AUTO) 20.5 % (21-51); MEAN CORPUSCULAR HEMOGLOBIN 23.8 PG (27.0-31.0); MEAN CORPUSCULAR HGB CONC 31.6 g/dL (33.0-36.5); MEAN CORPUSCULAR VOLUME 75.3 FL (78-98); MEAN PLATELET VOLUME 7.1 FL (7.4-10.4); MONOCYTES # (AUTO) 0.5 X10'3 (0-0.9); MONOCYTES % (AUTO) 7.7 % (2-12); NEUTROPHILS # (AUTO) 4.4 X10'3 (1.8-7.7); NEUTROPHILS % (AUTO) 70.4 % (42-75); PLATELET COUNT 378 X10'3 (140-440); RED BLOOD COUNT 5.32 X10'6 (4.20-5.60); RED CELL DISTRIBUTION WIDTH 19.4 % (11.5-14.5); WHITE BLOOD COUNT 6.3 X10'3 (4.5-11.0)
[2023-10-28 10:14] LABS: ALANINE AMINOTRANSFERASE 41 U/L (12-78); ALBUMIN 3.2 G/DL (3.4-5.0); ALBUMIN/GLOBULIN RATIO 0.8 (1.1-1.5); ALKALINE PHOSPHATASE 139 IU/L (46-116); ANION GAP 9 (8-16); ASPARTATE AMINO TRANSFERASE 34 U/L (10-37); BILIRUBIN,TOTAL 0.4 MG/DL (0.1-1.0); BLOOD UREA NITROGEN 13 MG/DL (7-18); BUN/CREATININE RATIO 16.3 (10.0-20.0); CALCIUM 8.9 MG/DL (8.5-10.1); CHLORIDE 104 MMOL/L (99-107); GLUCOSE 96 MG/DL (70-104); POTASSIUM 4.2 MMOL/L (3.5-5.1); SODIUM 139 MMOL/L (135-145); TOTAL CARBON DIOXIDE 25.8 MMOL/L (24-32); TOTAL PROTEIN 7.3 G/DL (6.4-8.2); eCRCL 65 ML/MIN; eGFR 72 ML/MIN
[2023-10-28 10:21] LABS: PRO BRAIN NATRIURETIC PEPTIDE 67 PG/ML (0-125)
[2023-10-28 10:40] LABS: PLATELET ESTIMATE NORMAL
[2023-10-28 10:41] LABS: ACANTHOCYTES 1+; ANISOCYTOSIS 2+; ELLIPTOCYTES 1+; HYPOCHROMASIA 1+; MICROCYTOSIS 1+; TARGET CELLS FEW
[2023-10-28 11:06] VITALS: BP 112/58; PULSE 73; RESP 13; O2SAT 95
== END 2023-10-28 11:10 | disposition home or self-care (01) ==
LOC: ER 09:38
DX: R55 Syncope and collapse (principal); Z79.899 Other long term (current) drug therapy; Z90.710 Acquired absence of both cervix and uterus
CPT/HCPCS: 36415; 71045; 80053; 83880; 84484; 85008; 85025; 93005; 99285

== ENCOUNTER 2023-11-04 13:42 | Emergency (ER) | payer MEDICARE, OTHER ==
[~2023-11-04] VITALS: Ht 167.6 cm; Wt 69.0 kg
[2023-11-04 14:14] LABS: BASOPHILS % (AUTO) 0.7 % (0-1); EOSINOPHILS # (AUTO) 0.1 X10'3 (0-0.9); EOSINOPHILS % (AUTO) 2.2 % (0-6); HEMOGLOBIN 12.1 g/dl (12.0-16.0); LYMPHOCYTES # (AUTO) 1.7 X10'3 (1.1-4.8); LYMPHOCYTES % (AUTO) 26.5 % (21-51); MEAN CORPUSCULAR HGB CONC 31.9 g/dL (33.0-36.5); MEAN CORPUSCULAR VOLUME 75.4 FL (78-98); MEAN PLATELET VOLUME 7.2 FL (7.4-10.4); MONOCYTES # (AUTO) 0.4 X10'3 (0-0.9); MONOCYTES % (AUTO) 5.5 % (2-12); NEUTROPHILS # (AUTO) 4.3 X10'3 (1.8-7.7); NEUTROPHILS % (AUTO) 65.1 % (42-75); PLATELET COUNT 334 X10'3 (140-440); RED BLOOD COUNT 5.05 X10'6 (4.20-5.60); RED CELL DISTRIBUTION WIDTH 19.8 % (11.5-14.5); WHITE BLOOD COUNT 6.6 X10'3 (4.5-11.0)
[2023-11-04 14:27] LABS: ALANINE AMINOTRANSFERASE 41 U/L (12-78); ALBUMIN 3.1 G/DL (3.4-5.0); ALBUMIN/GLOBULIN RATIO 0.8 (1.1-1.5); ALKALINE PHOSPHATASE 137 IU/L (46-116); ANION GAP 12 (8-16); ASPARTATE AMINO TRANSFERASE 31 U/L (10-37); BILIRUBIN,TOTAL 0.3 MG/DL (0.1-1.0); BLOOD UREA NITROGEN 16 MG/DL (7-18); BUN/CREATININE RATIO 17.6 (10.0-20.0); CALCIUM 8.9 MG/DL (8.5-10.1); CHLORIDE 105 MMOL/L (99-107); CREATININE 0.91 MG/DL (0.40-0.90); GLUCOSE 126 MG/DL (70-104); POTASSIUM 3.5 MMOL/L (3.5-5.1); SODIUM 139 MMOL/L (135-145); TOTAL CARBON DIOXIDE 22.3 MMOL/L (24-32); TOTAL PROTEIN 6.8 G/DL (6.4-8.2); eCRCL 57 ML/MIN; eGFR 62 ML/MIN
[2023-11-04 14:34] LABS: PRO BRAIN NATRIURETIC PEPTIDE 62 PG/ML (0-125)
[2023-11-04 14:35] LABS: ANISOCYTOSIS 2+; ELLIPTOCYTES 1+; MICROCYTOSIS 1+; PLATELET ESTIMATE NORMAL; POIKILOCYTOSIS FEW
[2023-11-04] MEDS ORDERED: ZOLP12.555 PO (14:55)
[2023-11-04] MEDS ORDERED: EZET10TA48 PO (14:55)
[2023-11-04] MEDS ORDERED: PRAV20TA4 PO (14:55)
[2023-11-04 16:17] VITALS: BP 99/57; PULSE 81; TEMP 98.3; O2SAT 96
[2023-11-04 17:14] VITALS: RESP 16
== END 2023-11-04 17:40 | disposition home or self-care (01) ==
LOC: ER 13:43
DX: R56.9 Unspecified convulsions (principal); Z79.899 Other long term (current) drug therapy; Z90.710 Acquired absence of both cervix and uterus; Z98.890 Other specified postprocedural states
CPT/HCPCS: 36415; 71045; 80053; 83880; 84484; 85008; 85025; 93005; 99285

== ENCOUNTER 2024-02-24 16:14 | Emergency (ER) | payer MEDICARE, OTHER ==
[~2024-02-24] VITALS: Ht 167.6 cm; Wt 68.2 kg
[~2024-02-24 16:14] MED LIST changes: +EZET10TA48 PO; -PANT40TA54 PO; +PRAV20TA4 PO; -SUCR1TAB34 PO; -TICA90TA2 PO; +ZOLP12.570 PO
[2024-02-24 16:51] LABS: BASOPHILS % (AUTO) 0.7 % (0-1); EOSINOPHILS # (AUTO) 0.1 X10'3 (0-0.9); EOSINOPHILS % (AUTO) 1.2 % (0-6); HEMATOCRIT 39.2 % (35.0-45.0); HEMOGLOBIN 12.4 g/dl (12.0-16.0); LYMPHOCYTES # (AUTO) 1.9 X10'3 (1.1-4.8); LYMPHOCYTES % (AUTO) 28.7 % (21-51); MEAN CORPUSCULAR HEMOGLOBIN 24.6 PG (27.0-31.0); MEAN CORPUSCULAR HGB CONC 31.5 g/dL (33.0-36.5); MEAN CORPUSCULAR VOLUME 78.1 FL (78-98); MEAN PLATELET VOLUME 6.6 FL (7.4-10.4); MONOCYTES # (AUTO) 0.5 X10'3 (0-0.9); MONOCYTES % (AUTO) 7.8 % (2-12); NEUTROPHILS # (AUTO) 4.1 X10'3 (1.8-7.7); NEUTROPHILS % (AUTO) 61.6 % (42-75); PLATELET COUNT 368 X10'3 (140-440); RED BLOOD COUNT 5.02 X10'6 (4.20-5.60); RED CELL DISTRIBUTION WIDTH 18.3 % (11.5-14.5); WHITE BLOOD COUNT 6.7 X10'3 (4.5-11.0)
[2024-02-24 17:04] LABS: ALANINE AMINOTRANSFERASE 44 U/L (12-78); ALBUMIN 3.2 G/DL (3.4-5.0); ALBUMIN/GLOBULIN RATIO 0.8 (1.1-1.5); ALKALINE PHOSPHATASE 164 IU/L (46-116); ANION GAP 6 (8-16); ASPARTATE AMINO TRANSFERASE 40 U/L (10-37); BILIRUBIN,TOTAL 0.3 MG/DL (0.1-1.0); BLOOD UREA NITROGEN 9 MG/DL (7-18); BUN/CREATININE RATIO 8.9 (10.0-20.0); CALCIUM 8.4 MG/DL (8.5-10.1); CHLORIDE 105 MMOL/L (99-107); CREATININE 1.01 MG/DL (0.40-0.90); GLUCOSE 92 MG/DL (70-104); POTASSIUM 4.4 MMOL/L (3.5-5.1); SODIUM 139 MMOL/L (135-145); TOTAL CARBON DIOXIDE 28.4 MMOL/L (24-32); TOTAL PROTEIN 7.1 G/DL (6.4-8.2); eCRCL 51 ML/MIN; eGFR 55 ML/MIN
[2024-02-24 17:11] LABS: PRO BRAIN NATRIURETIC PEPTIDE 75 PG/ML (0-125)
[2024-02-24 20:07] VITALS: BP 134/94; PULSE 75; RESP 16; TEMP 97.9; O2SAT 96
== END 2024-02-24 20:08 | disposition home or self-care (01) ==
LOC: ER 16:15
DX: R07.89 Other chest pain (principal); R68.84 Jaw pain; Z79.899 Other long term (current) drug therapy; Z87.11 Personal history of peptic ulcer disease; Z90.710 Acquired absence of both cervix and uterus; Z86.74 Personal history of sudden cardiac arrest
CPT/HCPCS: 36415; 71045; 80053; 83880; 84484; 85025; 93005; 99285

== ENCOUNTER 2024-12-14 11:26 | Emergency (ER) | payer MEDICARE, OTHER ==
[~2024-12-14] VITALS: Ht 167.6 cm; Wt 68.2 kg
[~2024-12-14 11:26] MED LIST changes: +PRAV20TA17 PO; -PRAV20TA4 PO
[2024-12-14 11:41] VITALS: BP 107/59; PULSE 97; RESP 16; TEMP 98.6; O2SAT 99
--- NOTE | 2024-12-14 11:49 | ELECTROCARDIOGRAPH REPORT ---
[facility] Test Date: 2024-12-14 Test Time: 11:48:14 Pat Name: DAVID SCHULTZ Department: EMERGENCY ROOM Room: Gender: F Protective Services Officer: : 1955 Requested By: SHANNAN PERSON Order Number: [id number] Reading MD: Measurements Intervals [place] Rate: 93 P: 77 FL: 142 QRS: 91 QRSD: 116 T: 42 QT: 387 QTc: 482 Interpretive Statements Sinus rhythm Nonspecific intraventricular conduction delay Please click the below link to view image of tracing.
--- NOTE | 2024-12-14 11:50 | Physician Documentation ---
History of Present Illness ~ Chief Complaint: Dizziness Stated Complaint: LOW BP OK to notify your PCP?: Yes Source: patient Mode of Arrival: POV Exam Limitations: no limitations HPI 69-year-old female presents with dizziness and low blood pressure as well as shortness of breath. She states that her blood pressure alternates between low and high. Medication Reconciliation Allergies: Coded Allergies: No Known Drug Allergies (Verified Allergy, Unknown, 02/24/24) Scheduled Amiodarone HCl (Amiodarone HCl), 1 TAB PO BID Amitriptyline Hcl* (Elavil*), 0.5 TAB PO HS, (Reported) Atorvastatin Calcium (Atorvastatin Calcium), 1 TABLET PO HS Escitalopram Oxalate (Escitalopram Oxalate), 1 TAB PO HS, (Reported) Ezetimibe (Ezetimibe), 1 TAB PO DAILY, (Reported) Levothyroxine Sodium (Levothyroxine Sodium), 1 TAB PO MON-SAT 6 DAYS/WEEK, (Reported) Pravastatin Sodium (Pravastatin Sodium), 1 TAB PO DAILY, (Reported) Scheduled PRN Hydrocodone Bit/Acetaminophen (Hydrocodon-Acetaminophn 10-325 tablet), 1 TAB PO TID PRN for moderate or severe pain 4-10, (Reported) Zolpidem Tartrate (Zolpidem Tartrate), 1 TAB PO HS PRN for insomnia, (Reported) Past Medical History Past Medical History: Peptic Ulcer Disease Past Surgical History: abdominal surgery, hysterectomy, orthopedic surgeries Alcohol Use: None Drug Use: none Physical Exam Vital Signs: Temperature: 98.6, Source: Temporal, Heart Rate: 97, Respiratory Rate: 16, BP: 107/59, Pulse Oximetry: 99, Weight: 68.180 Oxygen Flow Rate: 0 Progress Results/Orders Results/Orders Vital Signs 12/14/24 11:41 Temp 98.6 Pulse 97 Resp 16 B/P (MAP) 107/59 Pulse Ox 99 O2 Flow Rate 0 Medical Decision Making Findings Patient left after MSE. Departure Disposition: LEFT AWOL/ELOPED Impression: Primary Impression: Eloped from emergency department Referrals: NO PRIMARY CARE PROVIDER (PCP) Additional Comment Medical Screen Exam This patient recieved a medical screening examination. After reviewing the individual's medical complaints with presenting symptoms and performing an appropriate physical examination, it was determined that no immediate life- threatening emergency medical condition is present. This individual is also not a women having contractions. Signature Scribe Signature: . Attestation: Scribed for Emergency,Department by Gemini Franks NP . 12/14/24 18:12 Parts of this note were created using [employer] voice recognition software program. While efforts were made to correct any mistakes made by this voice recognition software program, nonsensical phrases may remain in this note. In addition, there may be errors and syntax, grammar, content and spelling. GEMINI JACKSON [facility] Dec 14, 2024 11:50
[2024-12-14] MEDS ORDERED: CEPH-585 PO (22:41)
== END 2024-12-14 14:35 | disposition left against medical advice (07) ==
LOC: ER 11:26
DX: R42 Dizziness and giddiness (principal); R03.0 Elevated blood-pressure reading, without diagnosis of hypertension; R06.02 Shortness of breath; Z90.710 Acquired absence of both cervix and uterus; Z79.899 Other long term (current) drug therapy; Z53.21 Procedure and treatment not carried out due to patient leaving prior to being seen by health care provider
CPT/HCPCS: 93005

== ENCOUNTER 2024-12-14 17:41 | Emergency (ER) | payer MEDICARE, OTHER ==
[~2024-12-14] VITALS: Ht 167.6 cm; Wt 68.2 kg
--- NOTE | 2024-12-14 18:08 | Physician Documentation ---
History of Present Illness ~ Chief Complaint: Dizziness Stated Complaint: RECHECK Time Seen by MD: 20:40 OK to notify your PCP?: Yes Source: patient Mode of Arrival: POV Exam Limitations: no limitations HPI 69-year-old female presents for dizziness and shortness of breath for the past 2 years. She was here a couple hours ago but left after MSE due to our wait time. She has reported labile blood pressures which she believes is causing her dizziness. She denies any chest pain, vision change or cardiac history. Medication Reconciliation Allergies: Coded Allergies: No Known Drug Allergies (Verified Allergy, Unknown, 02/24/24) Scheduled Amiodarone HCl (Amiodarone HCl), 1 TAB PO BID Amitriptyline Hcl* (Elavil*), 0.5 TAB PO HS, (Reported) Atorvastatin Calcium (Atorvastatin Calcium), 1 TABLET PO HS Escitalopram Oxalate (Escitalopram Oxalate), 1 TAB PO HS, (Reported) Ezetimibe (Ezetimibe), 1 TAB PO DAILY, (Reported) Levothyroxine Sodium (Levothyroxine Sodium), 1 TAB PO MON-SAT 6 DAYS/WEEK, (Reported) Pravastatin Sodium (Pravastatin Sodium), 1 TAB PO DAILY, (Reported) Scheduled PRN Hydrocodone Bit/Acetaminophen (Hydrocodon-Acetaminophn 10-325 tablet), 1 TAB PO TID PRN for moderate or severe pain 4-10, (Reported) Zolpidem Tartrate (Zolpidem Tartrate), 1 TAB PO HS PRN for insomnia, (Reported) Past Medical History Past Medical History: Peptic Ulcer Disease Past Surgical History: abdominal surgery, hysterectomy, orthopedic surgeries Alcohol Use: None Drug Use: none Review of Systems All Other Systems at this time: Reviewed and Negative Physical Exam Vital Signs: RN Vital Signs have been reviewed: Yes, Temperature: 98.7, Source: Temporal, Heart Rate: 96, Respiratory Rate: 18, BP: 102/49, Pulse Oximetry: 99, Weight: 68.180 Oxygen Flow Rate: 0 Pulse Oximetry Reflects: adequate oxygenation Physical Exam General: Alert, no distress. HEENT: No injection, moist mucous membranes. Neck: Full range of motion. Respiratory: No respiratory distress, equal chest rise and fall. Chest: No accessory muscle use. Cardiovascular: Regular rate and rhythm. Gastrointestinal: Nondistended. Extremities: Normal range of motion, no deformity. Neurologic: Oriented x4. Psychiatric: Normal mood and affect. Skin: Normal color, warm and dry. Progress Results/Orders Results/Orders Orders - LANNY MENDEZ [employer] Monitor (12/14/24 19:12) Saline Lock (12/14/24 19:12) Oxygen (12/14/24 19:12) Hs Troponin I W Calculations (12/14/24 22:12) Chest,Two Views (12/14/24 19:29) Cult Urine + [place] [address] (12/14/24 22:31) Completed Orders - LANNY MENDEZ [employer] F[employer] WORK[employer] Cbc/Diff (12/14/24 19:12) BMP (12/14/24 19:12) PBNP (12/14/24 19:12) Electrocardiogram (12/14/24 19:12) Hs Troponin I W Calculations (12/14/24 19:12) Hs Troponin I W Calculations (12/14/24 21:12) Chest,Two Views (12/14/24 19:29) Ua W/Microscopic, Cult If Ind (12/14/24 20:25) Vital Signs 12/14/24 12/14/24 12/14/24 12/14/24 17:48 19:13 21:04 21:09 Temp 98.7 97.6 97.6 Pulse 96 78 89 Resp 18 16 16 B/P (MAP) 102/49 106/65 (79) 102/68 (79) Pulse Ox 99 98 96 O2 Flow Rate 0 0 Laboratory Tests Test 12/14/24 19:21 12/14/24 20:25 12/14/24 21:06 White Blood Count 6.0 Red Blood Count 4.87 Hemoglobin 11.5 L Hematocrit 36.1 Mean Corpuscular Volume 74.1 L Mean Corpuscular Hemoglobin 23.6 L Mean Corpuscular Hemoglobin Concent 31.8 L Red Cell Distribution Width 20.9 H Platelet Count 339 Mean Platelet Volume 6.8 L Neutrophils (%) (Auto) 56.3 Lymphocytes (%) (Auto) 34.8 Monocytes (%) (Auto) 7.2 Eosinophils (%) (Auto) 1.2 Basophils (%) (Auto) 0.5 Neutrophils # (Auto) 3.4 Lymphocytes # (Auto) 2.1 Monocytes # (Auto) 0.4 Eosinophils # (Auto) 0.1 Basophils # (Auto) 0.0 CBC Comment Platelet Estimate Normal Red Blood Cell Morphology Perf Basophilic Stippling Anisocytosis 2+ Microcytosis 1+ Sodium Level 136 Potassium Level 4.3 Chloride Level 102 Carbon Dioxide Level 26.8 Anion Gap 7 L Blood Urea Nitrogen 10 Creatinine 1.12 H Estimated GFR/1.73 m2 49 BUN/Creatinine Ratio 8.9 L Glucose Level 91 Calcium Level 8.9 Troponin I High Sensitivity 7 8 Pro-B-Type Natriuretic Peptide 79 Albumin 3.1 L Chemistry Comments Urine Specimen Description Cln catch midstream Urine Color Yellow Urine Clarity Clear Urine pH 6.0 Urine Specific [place] 1.020 Urine Protein Negative Urine Glucose (UA) Negative Urine Ketones Negative Urine Occult Blood Negative Urine Nitrite Negative Urine Bilirubin Negative Urine Urobilinogen 0.2 Urine Leukocyte Esterase Small H Urine RBC 0-2 Urine WBC 10-20 H Urine Squamous Epithelial Cells Few Urine Bacteria 2+ Urine Culture Indicated Indicated Volume Urine Centrifuged 10 ml Urine Comment Troponin I High Sens Percent Delta 14 Troponin I Hi Sens Absolute Change 1 Medical Decision Making Findings This patient presents with dizziness, most consistent with a peripheral cause, likely BPPV. History of recent infection so possible vestibular neuritis. History not consistent with meniere's disease. No history of trauma. No red flag features for central vertigo to include gradual onset, vertical/bidirectional or non-fatigable nystagmus, focal neurologic findings on exam (including inability to ambulate, ataxia, dysmetria). Presentation not consistent with an acute STEAMER TENDER infection, vertebral basilar artery insufficiency, cerebellar hemorrhage or infarction, intracranial mass or bleed. Patient presents for symptomatic microcytic anemia secondary to iron deficiency. Patient with known iron deficiency. Patient feels well on discharge with plan to follow up with PMD. Patient reports that she is aware that she is anemic and will follow up with her primary care provider since been an ongoing issue for her. This patient presents with symptoms consistent with acute uncomplicated cystitis. No systemic symptoms. Not septic. Well appearing. Low suspicion for acute pyelonephritis given lack of fever, CVAT, or systemic features. Low suspicion for kidney stone or infected stone. Upreg negative so doubt ectopic . Low suspicion for ovarian torsion, PID, or appendicitis. She has been prescribed the patient will follow up with her primary care provider or return return to the emergency department if she has any worsening or recurrent symptoms or any additional concerning symptoms present flank pain fever nausea vomiting hematuria. Differential Dx:Considerations: Include: anemia, CVA, dehydration, dysrhythmia, electrolyte imbalance, encephalopathy, Guillain-[place], hypoglycemia, hypotension, hypovolemia, labyrinthitis, Meniere's disease, myasathenia gravis, myocardial infarction, pulmonary embolus, renal failure, respiratory failure, TIA, VBI, vertigo central, vertigo peripheral, vestibular neuronitis, other Departure Disposition: 01 HOME / SELF CARE / HOMELESS Impression: Primary Impression: Dizziness Additional Impression: Anemia Condition: Stable Discharge Instructions: Hemolytic Anemia Additional Instructions: This patient presents with dizziness, most consistent with a peripheral cause, likely BPPV. History of recent infection so possible vestibular neuritis. History not consistent with meniere's disease. No history of trauma. No red flag features for central vertigo to include gradual onset, vertical/bidirectional or non-fatigable nystagmus, focal neurologic findings on exam (including inability to ambulate, ataxia, dysmetria). Presentation not consistent with an acute STEAMER TENDER infection, vertebral basilar artery insufficiency, cerebellar hemorrhage or infarction, intracranial mass or bleed. Patient presents for symptomatic microcytic anemia secondary to iron deficiency. Patient with known iron deficiency. Patient feels well on discharge with plan to follow up with PMD. Patient reports that she is aware that she is anemic and will follow up with her primary care provider since been an ongoing issue for her. This patient presents with symptoms consistent with acute uncomplicated cystitis. No systemic symptoms. Not septic. Well appearing. Low suspicion for acute pyelonephritis given lack of fever, CVAT, or systemic features. Low suspicion for kidney stone or infected stone. Upreg negative so doubt ectopic . Low suspicion for ovarian torsion, PID, or appendicitis. She has been prescribed the patient will follow up with her primary care provider or return return to the emergency department if she has any worsening or recurrent symptoms or any additional concerning symptoms present flank pain fever nausea vomiting hematuria. Referrals: NO PRIMARY CARE PROVIDER (PCP) Prescriptions Cephalexin*Monohydrate* (Keflex*) 500 Mg Capsule 1 CAP PO QID for 7 Days, #28 CAP Prov: LANNY MENDEZP 12/14/24 Education Educated: Patient Educated regarding: diagnosis, treatment, need for follow up Additional Comment Medical Screen Exam This patient recieved a medical screening examination. After reviewing the individual's medical complaints with presenting symptoms and performing an appropriate physical examination, it was determined that no immediate life- threatening emergency medical condition is present. This individual is also not a women having contractions. Signature Scribe Signature: A Attestation: Scribed for Lanny Mendez by ROB Sequeira . 12/14/24 22:41 EDWIN JACKSON Dec 14, 2024 18:08 LANNY MENDEZ Dec 14, 2024 21:28
--- NOTE | 2024-12-14 19:20 | ELECTROCARDIOGRAPH REPORT ---
[facility] Test Date: 2024-12-14 Test Time: 19:19:04 Pat Name: DAVID SCHULTZ Department: EMERGENCY ROOM Room: Gender: F Director Of Neurology: SHANNAN : 1955 Requested By: CALVIN MENDEZ Order Number: [id number] Reading MD: Measurements Intervals [place] Rate: 89 P: 78 [place]: 144 QRS: 91 QRSD: 105 T: 20 QT: 380 QTc: 463 Interpretive Statements Sinus rhythm Right axis deviation Low voltage, precordial leads Baseline wander in lead(s) I,aVL,V1,V5,V6 Please click the below link to view image of tracing.
[2024-12-14 19:38] LABS: MEAN PLATELET VOLUME 6.8 FL (7.4-10.4); RED CELL DISTRIBUTION WIDTH 20.9 % (11.5-14.5)
--- NOTE | 2024-12-14 19:42 | RADIOLOGY REPORT ---
EXAM: DI CHEST,TWO VIEWS CLINICAL HISTORY: SOB, ACS TECHNIQUE: Frontal and lateral views of the chest WID: COMPARISON: DI CHEST,SINGLE VIEW on DOS: 02/24/24 FINDINGS: Lines and tubes: None Chest: The heart size and pulmonary vasculature is within normal limits. Calcified plaque projects over the aortic arch. No pleural effusion, pneumothorax, or consolidation. The osseous structures are grossly intact. Mild multilevel thoracic spondylosis. IMPRESSION: No acute cardiopulmonary abnormality.
[2024-12-14 19:56] LABS: CREATININE 1.12 MG/DL (0.40-0.90); PRO BRAIN NATRIURETIC PEPTIDE 79 PG/ML (0-125); TOTAL CARBON DIOXIDE 26.8 MMOL/L (24-32); eCRCL 46 ML/MIN; eGFR 49 ML/MIN
[2024-12-14 20:10] LABS: PLATELET ESTIMATE NORMAL
[2024-12-14 21:09] VITALS: BP 102/68; PULSE 89; RESP 16; TEMP 97.6; O2SAT 96
[2024-12-14 22:20] LABS: LEUKOCYTE ESTERASE ,URINE SMALL (Neg); NITRITES, URINE NEGATIVE (Neg); OCCULT BLOOD,URINE NEGATIVE (Neg)
[2024-12-14 22:21] LABS: UA COLLECTION TYPE CLN CATCH MIDSTREAM
[2024-12-14 22:31] LABS: SQUAMOUS EPITHELIAL CELL,UR FEW /LPF (FEW)
[2024-12-14] MEDS ORDERED: CEPH-585 PO (22:41)
== END 2024-12-14 22:55 | disposition home or self-care (01) ==
LOC: ER 17:42
DX: R42 Dizziness and giddiness (principal); R06.02 Shortness of breath; D64.9 Anemia, unspecified; Z79.899 Other long term (current) drug therapy; Z90.710 Acquired absence of both cervix and uterus
CPT/HCPCS: 36415; 71046; 80048; 81001; 83880; 84484; 85008; 85025; 87088; 93005; 99285

== ENCOUNTER 2025-01-23 01:57 | Emergency (ER) | payer MEDICARE ==
[~2025-01-23] VITALS: Ht 168.9 cm; Wt 70.0 kg
--- NOTE | 2025-01-23 02:08 | Physician Documentation ---
History of Present Illness ~ Chief Complaint: Syncope Stated Complaint: SYNCOPE A ALS Time Seen by MD: 02:05 Primary Medical Doctor: DR. SOPHIE HUGO Mode of Arrival: EMS, Stretcher HPI Patient presents to the emergency room after syncopal episode after going to the bathroom in the middle of the night. Patient has history of similar episodes. 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 She has been suffering from similar episodes of syncope for the past year. No head strike tonight. She states that while coming back from the bathroom she felt like she was going to pass out was trying to make it to the bed but did not and fell striking her right shoulder on the night stand but no head strike and has been who is at the scene confirms this. Currently she feels like herself. She denies any chest pain or palpitations. Patient was history of hypotension Medication Reconciliation Allergies: Coded Allergies: No Known Drug Allergies (Verified Allergy, Unknown, 02/24/24) Scheduled Amiodarone HCl (Amiodarone HCl), 1 TAB PO BID Amitriptyline Hcl* (Elavil*), 0.5 TAB PO HS, (Reported) Atorvastatin Calcium (Atorvastatin Calcium), 1 TABLET PO HS Escitalopram Oxalate (Escitalopram Oxalate), 1 TAB PO HS, (Reported) Ezetimibe (Ezetimibe), 1 TAB PO DAILY, (Reported) Levothyroxine Sodium (Levothyroxine Sodium), 1 TAB PO MON-SAT 6 DAYS/WEEK, (Reported) Pravastatin Sodium (Pravastatin Sodium), 1 TAB PO DAILY, (Reported) Scheduled PRN Hydrocodone Bit/Acetaminophen (Hydrocodon-Acetaminophn 10-325 tablet), 1 TAB PO TID PRN for moderate or severe pain 4-10, (Reported) Zolpidem Tartrate (Zolpidem Tartrate), 1 TAB PO HS PRN for insomnia, (Reported) Past Medical History Past Medical History: Peptic Ulcer Disease Past Surgical History: abdominal surgery, hysterectomy, orthopedic surgeries Alcohol Use: None Drug Use: none Review of Systems ROS All review of systems negative except as per HPI Physical Exam Vital Signs: Temperature: 98.1, Source: Oral, Heart Rate: 71, Respiratory Rate: 16, BP: 114/51, Pulse Oximetry: 92, Weight: 70.000 Oxygen Flow Rate: 0 Physical Exam General: Patient is awake, alert, oriented x4 in no acute distress and well appearing.~ Head: Normocephalic and atraumatic. Eyes: Conjunctival normal. EOMI. PERRL. ENT: Mucous membranes moist. Neck: Supple, trachea is midline. No cervical midline tenderness Chest: Clear to auscultation bilaterally without rales, rhonchi, or wheezes. There is no accessory muscle use or retractions. Cardiac: RRR without murmurs, gallops, or rubs. Abd: Soft, nondistended, nontender, with normoactive bowel sounds. No guarding, rebound, or rigidity. Extremities: Normal strength. Normal range of motion. No deformities or edema. No calf tenderness to palpation Neuro: Cranial nerves II-XII grossly intact. No focal neuro deficits. Progress Results/Orders Results/Orders Orders - STEPHANIE BURR MD Electrocardiogram (01/23/25 02:16) Saline Lock (01/23/25 02:16) Monitor (01/23/25 02:16) Hs Troponin I W Calculations (01/23/25 04:16) Hs Troponin I W Calculations (01/23/25 05:16) Completed Orders - STEPHANIE BURR MD Electrocardiogram (01/23/25 02:05) Cbc/Diff (01/23/25 02:16) MG (01/23/25 02:16) PBNP (01/23/25 02:16) BMP (01/23/25 02:16) Hs Troponin I W Calculations (01/23/25 02:16) Normal Saline 1000ml (0.9% Sodium Chlori (01/23/25 03:10) Medications Received in ER Medications (Trade) Dose Ordered Sig/Kristel Route PRN Reason Start Time Stop Time Status Last Admin Dose Admin Sodium Chloride 1,000 ml @ 1,000 mls/hr ONCE ONCE IV 01/23/25 03:10 01/23/25 04:09 DC 01/23/25 03:19 1,000 MLS/HR Vital Signs 01/23/25 01/23/25 01/23/25 01/23/25 02:00 02:05 02:37 03:27 Temp 98.1 98.1 Pulse 71 74 72 Resp 16 16 18 16 B/P (MAP) 114/51 98/54 (69) 106/49 (68) Pulse Ox 92 92 94 O2 Flow Rate 0 0 0 01/23/25 04:29 Pulse 66 Resp 16 B/P (MAP) 104/53 (70) Pulse Ox 94 O2 Flow Rate 0 Laboratory Tests Test 01/23/25 02:16 01/23/25 04:08 White Blood Count 5.4 Red Blood Count 4.13 L Hemoglobin 9.9 L Hematocrit 31.1 L Mean Corpuscular Volume 75.2 L Mean Corpuscular Hemoglobin 24.1 L Mean Corpuscular Hemoglobin Concent 32.0 L Red Cell Distribution Width 21.0 H Platelet Count 292 Mean Platelet Volume 7.2 L Neutrophils (%) (Auto) 47.9 Lymphocytes (%) (Auto) 40.1 Monocytes (%) (Auto) 9.3 Eosinophils (%) (Auto) 2.1 Basophils (%) (Auto) 0.6 Neutrophils # (Auto) 2.6 Lymphocytes # (Auto) 2.2 Monocytes # (Auto) 0.5 Eosinophils # (Auto) 0.1 Basophils # (Auto) 0.0 CBC Comment Platelet Estimate Normal Red Blood Cell Morphology Perf Basophilic Stippling Anisocytosis 3+ Microcytosis 1+ Tear Drop Cells 1+ Elliptocytes 1+ Sodium Level 139 Potassium Level 3.9 Chloride Level 104 Carbon Dioxide Level 28.3 Anion Gap 7 L Blood Urea Nitrogen 23 H Creatinine 0.88 Estimated GFR/1.73 m2 64 BUN/Creatinine Ratio 26.1 H Glucose Level 109 H Calcium Level 8.5 Magnesium Level 2.0 Troponin I High Sensitivity 7 Pro-B-Type Natriuretic Peptide 42 Albumin 2.9 L Chemistry Comments EKG/XRAY/CT/US/VASC/MRI EKG : Additional Comment EKG interpreted by myself shows time of 0214, rate 71, sinus rhythm, normal axis, no ST changes Medical Decision Making Findings Patient presented to the emergency room with syncopal episode as per HPI. Differentials include but are not limited to vasovagal, POTS, cardiac arrhythmia therefore emergent labs ordered. Labs reassuring for troponins negative x2. Given patient's long history of this I do not feel she is suffering from emergent process however she does require follow up. Consideration of midodrine. Consideration of POTS. Given patient's BUN creatinine ratio suspect mild dehydration as well. She has received 1 L IV fluid. Departure Disposition: HOME / SELF CARE / HOMELESS Impression: Primary Impression: Vasovagal syncope Condition: Stable Discharge Instructions: Syncope, Adult Additional Instructions: Speak with your doctor about midodrine as this may help with your low blood pressure. Stay hydrated Referrals: NO PRIMARY CARE PROVIDER (PCP) Signature Scribe Signature: No scribe Attestation: The note accurately reflects work and decisions made by me.Stephanie Burr MD 01/23/25 04:43 STEPHANIE BURR MD Jan 23, 2025 02:08
--- NOTE | 2025-01-23 02:16 | ELECTROCARDIOGRAPH REPORT ---
[facility] Test Date: 2025-01-23 Test Time: 02:14:06 Pat Name: DAVID SCHULTZ Department: EMERGENCY ROOM Room: Gender: F Senior Mechanical Designer: : 1955 Requested By: STEPHANIE RODRÍGUEZ Order Number: [id number] Reading MD: Measurements Intervals [place] Rate: 71 P: 55 IA: 163 QRS: 60 QRSD: 133 T: 66 QT: 466 QTc: 507 Interpretive Statements Sinus arrhythmia Nonspecific intraventricular conduction delay Please click the below link to view image of tracing.
[2025-01-23 02:28] LABS: MEAN PLATELET VOLUME 7.2 FL (7.4-10.4); RED CELL DISTRIBUTION WIDTH 21.0 % (11.5-14.5)
[2025-01-23 02:34] LABS: PLATELET ESTIMATE NORMAL
[2025-01-23 02:35] LABS: ELLIPTOCYTES 1+
[2025-01-23 02:37] VITALS: TEMP 98.1
[2025-01-23 02:49] LABS: CREATININE 0.88 MG/DL (0.40-0.90); PRO BRAIN NATRIURETIC PEPTIDE 42 PG/ML (0-125); TOTAL CARBON DIOXIDE 28.3 MMOL/L (24-32); eCRCL 59 ML/MIN; eGFR 64 ML/MIN
[2025-01-23] MEDS: normal saline 1000ml 1,000 ML IV ONE (03:19)
[2025-01-23 04:57] VITALS: BP 104/53; PULSE 73; RESP 16; O2SAT 95
== END 2025-01-23 04:58 | disposition home or self-care (01) ==
LOC: ER 01:57
DX: R55 Syncope and collapse (principal); R06.02 Shortness of breath; Z90.710 Acquired absence of both cervix and uterus
CPT/HCPCS: 36415; 80048; 83735; 83880; 84484; 85025; 93005; 96360; 99285; J7030; 85008